=== PATIENT | female | born 1960 | race Two or more races ===

== ENCOUNTER 2018-05-28 14:00 | Inpatient (IN) | payer OTHER ==
[~2018-05-28] VITALS: Ht 152.4 cm; Wt 66.2 kg
[2018-05-28] MEDS ORDERED: OMEPRAZOLE20 M1 PO (14:21)
[2018-05-28] MEDS ORDERED: BENTYL10 MG/1 ML IM (14:21)
[2018-05-28] MEDS ORDERED: LISINOPRIL10 MG PO (14:21)
[2018-05-28] MEDS ORDERED: ZANTAC300 MG PO (14:22)
[2018-06-05] MEDS ORDERED: OXYC1TAB9 PO (10:21)
[2018-06-05] MEDS ORDERED: INTESTINEX680 M1 PO (10:22)
== END 2018-06-05 11:38 | disposition home or self-care (01) | DRG 331 ==
LOC: SURH 06-01 13:57
PROVIDERS: Surgery
PROC: 0DTP4ZZ Resection of Rectum, Percutaneous Endoscopic Approach (ICD-10-PCS; 2018-06-01)
PROC: 07TC4ZZ Resection of Pelvis Lymphatic, Percutaneous Endoscopic Approach (ICD-10-PCS; 2018-06-01)
PROC: 0DBU4ZZ Excision of Omentum, Percutaneous Endoscopic Approach (ICD-10-PCS; 2018-06-01)
PROC: 0DJD8ZZ Inspection of Lower Intestinal Tract, Via Natural or Artificial Opening Endoscopic (ICD-10-PCS; 2018-06-01)
PROC: 0DTN4ZZ Resection of Sigmoid Colon, Percutaneous Endoscopic Approach (ICD-10-PCS; principal; 2018-06-01 18:00)
DX: C19 Malignant neoplasm of rectosigmoid junction (principal)

== ENCOUNTER 2018-07-20 07:27 | Day surgery (SDC) | payer OTHER ==
[~2018-07-20 07:27] MED LIST: BENTYL10 MG/1 ML IM; INTESTINEX680 M1 PO; LISINOPRIL10 MG PO; OMEPRAZOLE20 M1 PO; OXYC1TAB9 PO; ZANTAC300 MG PO
[2018-07-20] MEDS ORDERED: OXYC1TAB9 PO (09:04)
== END 2018-07-20 12:25 | disposition home or self-care (01) ==
LOC: CIR.AMB 07:27
DX: C19 Malignant neoplasm of rectosigmoid junction (principal)
CPT/HCPCS: 36561; C1751